=== PATIENT | male | born 1955 | race Caucasian/White ===

== ENCOUNTER → 2019-03-20 | Outpatient (CLI) | payer BC ==
[2019-03-20 10:55] LABS: Basophils # (A) 0.1 k/uL (0-0.2); Basophils % (A) 1 %; Eosinophils # (A) 0.3 k/uL (0-0.7); Eosinophils % (A) 4 %; HCT 48.2 % (39.0-53.0); HGB 15.8 gm/dL (13.0-17.5); Lymphocytes # (A) 1.6 k/uL (1.0-4.8); Lymphocytes % (A) 24 %; MCH 29.6 pg (25.0-35.0); MCHC 32.7 g/dL (31.0-37.0); MCV 90.4 fL (80.0-100.0); Mean Platelet Volume 7.6; Monocytes # (A) 0.5 k/uL (0-1.0); Monocytes % (A) 7 %; Neutrophils # (A) 4.1 k/uL (1.3-7.7); Neutrophils % (A) 62 %; Platelet Count 188 k/uL (150-450); RBC 5.33 m/uL (4.30-5.90); RDW 15.1 % (11.5-15.5); WBC 6.7 k/uL (3.8-10.6)
[2019-03-20 15:49] LABS: T4, Free (Free Thyroxine) 1.2 ng/dL (0.80-1.80)
[2019-03-20 18:07] LABS: African American GFR (CKD) 73.6 (60.0-200.0); Albumin 4.6 g/dL (3.80-4.90); Albumin/Globulin Ratio 2.3 (1.60-3.17); BUN/Creat Ratio 16.67 Ratio (12.00-20.00); Calcium 9.7 mg/dL (8.7-10.3); LDL Cholesterol,Calculated 77.4 mg/dL (0.0-131.0); Potassium 4.8 mmol/L (3.5-5.5); Total Bilirubin 0.4 mg/dL (0.3-1.2); Total Protein 6.6 g/dL (6.2-8.2); VLDL Calculation 18.6 mg/dL (5.00-40.00)
== END | disposition home or self-care (01) ==
LOC: LABWHC1 10:12
PROVIDERS: ATTEND Nurse Practitioner Family
DX: Z00.00 Encounter for general adult medical examination without abnormal findings (principal); E11.22 Type 2 diabetes mellitus with diabetic chronic kidney disease
CPT/HCPCS: 36415; 80053; 80061; 84153; 84439; 84443; 85025

== ENCOUNTER 2019-05-01 09:49 | Day surgery (SDC) | payer BC ==
[2019-04-30 08:54] VITALS: BMI 32.7
[2019-05-01 10:12] VITALS: BP 163/71; PULSE 90; TEMP 98
--- NOTE | 2019-05-01 12:16 | IR ---
PICC LINE PLACEMENT: HISTORY: Infection requiring long-term antibiotic therapy PROCEDURE: Ultrasound and fluoroscopic guidance of PICC line placement. COMPLICATIONS: None ANESTHESIA: 1. 1% Lidocaine locally. FINDINGS/TECHNIQUE: The procedure was explained to the patient. The risks, complications, benefits and alternatives were discussed and any questions were answered. Informed consent was obtained. The patient was placed supine on the fluoroscopic table and prepped and draped in the usual sterile fash ion. Utilizing a 21 gauge needle and sonographic and fluoroscopic guidance, access in the right cep halic vein was achieved and there is placement of a 0.018 guidewire. The vein is patent. A 4-F walsh th was placed over the guidewire. The guidewire and dilator were removed and a 4-F. PICC line was pl aced through the sheath with the tip at the level of the SVC. The sheath was removed, the catheter w as flushed and sutured into position. The patient was stable throughout the procedure and remained s table upon discharge from the Department of Radiology. The vein puncture was patent under ultrasound. A ferrer scale image was obtained to document patency of the vein punctured. All elements of the maximal barrier technique were utilized. FLUOROSCOPY TIME: 1 minute of fluoroscopy and one image submitted IMPRESSION: Successful PICC line placement under ultrasound and fluoroscopic guidance.
== END 2019-05-01 11:27 | disposition home or self-care (01) ==
LOC: CATHCVL 09:49
PROVIDERS: ATTEND Radiology Diagnostic Radiology
DX: T87.43 Infection of amputation stump, right lower extremity (principal); Y83.5 Amputation of limb(s) as the cause of abnormal reaction of the patient, or of later complication, without mention of misadventure at the time of the procedure; Z79.4 Long term (current) use of insulin; Z87.891 Personal history of nicotine dependence; E11.621 Type 2 diabetes mellitus with foot ulcer; L97.519 Non-pressure chronic ulcer of other part of right foot with unspecified severity
CPT/HCPCS: 36573; C1751; C1769

== ENCOUNTER → 2020-03-29 | Outpatient (CLI) | payer MEDICARE, BC ==
--- NOTE | 2020-03-29 10:13 | XR ---
Cervical spine HISTORY: Pain External views of the cervical spine Foraminal encroachment is present on the right at C5-6 and C6-7 on the right. There is spondylosis at these levels with associated loss of disc height C5-6 and C6-7. Cervical vertebral bodies show prese rved height and mineralization, anatomic alignment. Some mild facet arthropathy changes are present. Patient is edentulous. Atheromatous changes are present in the carotid artery distribution. IMPRESSION: Degenerative disc disease.
== END | disposition home or self-care (01) ==
LOC: RADXRMAIN 08:55
PROVIDERS: ATTEND Family Medicine
DX: M50.10 Cervical disc disorder with radiculopathy, unspecified cervical region (principal)
CPT/HCPCS: 72050

== ENCOUNTER 2020-05-24 13:35 | Emergency (ER) | payer MEDICARE, BC ==
[2020-05-24 13:42] VITALS: RESP 18; TEMP 98.5
[2020-05-24] MEDS ORDERED: SODIUM CHLORIDE 0.9% 500 ML 500 ML IV STA (14:07)
[2020-05-24] MEDS ORDERED: SODIUM CHLORIDE 0.9% 1,000 ML IV STA (14:07)
--- NOTE | 2020-05-24 14:08 | ED ---
Eye Problem HPI - General Chief complaint: Eye Problems Stated complaint: Blurred Vision Time Seen by Provider: 05/24/20 13:43 Source: patient, RN notes reviewed, old records reviewed Mode of arrival: wheelchair Limitations: no limitations - History of Present Illness Initial comments: This is a 64-year-old male presenting with vision loss right eye patient is less half his visual field in the upper portion. History of left eye prosthetic. Patient having no pain symptoms 3 days no head injuries. No other complaints MD chief complaint: vision change (Difficulty seeing upper visual field), other -: days(s) (3) Onset Description: sudden Location: right eye Place: home If Injury: none Severity: severe Severity scale (1-10): 10 (No pain but complete loss of vision right upper visual field) Consistency: constant Associated Symptoms: none Treatments Prior to Arrival: none - Related Data Home Medications Medication Instructions Recorded Confirmed INSULIN LISPRO (humaLOG) [humaLOG] 45 units SQ TID 02/05/14 04/30/19 Insulin Glargine [Lantus] 65 unit SQ BID 02/05/14 04/30/19 Allergies Allergy/AdvReac Type Severity Reaction Status Date / Time No Known Allergies Allergy Verified 05/24/20 13:41 Review of Systems ROS Statement: Those systems with pertinent positive or pertinent negative responses have been documented in the HPI. ROS Other: All systems not noted in ROS Statement are negative. 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 Past Psychological History: Anxiety Smoking Status: Current every day smoker Past Alcohol Use History: None Reported, Rare Past Drug Use History: None Reported - Past Family History Mother Family Medical History: Coronary Artery Disease (CAD), Diabetes Mellitus Father Family Medical History: No Reported History Sister(s) Family Medical History: Cancer General Exam - General Exam Comments Initial Comments: Right eye has no upper visual field Limitations: no limitations General appearance: alert, in no apparent distress Head exam: Present: atraumatic, normocephalic, normal inspection Eye exam: Present: normal appearance, PERRL, EOMI. Absent: scleral icterus, conjunctival injection, periorbital swelling ENT exam: Present: normal exam, mucous membranes moist Neck exam: Present: normal inspection. Absent: tenderness, meningismus, lymphadenopathy Respiratory exam: Present: normal lung sounds bilaterally. Absent: respiratory distress, wheezes, rales, rhonchi, stridor Cardiovascular Exam: Present: regular rate, normal rhythm, normal heart sounds. Absent: systolic murmur, diastolic murmur, rubs, gallop, clicks GI/Abdominal exam: Present: soft, normal bowel sounds. Absent: distended, tenderness, guarding, rebound, rigid Extremities exam: Present: normal inspection, full ROM, normal capillary refill. Absent: tenderness, pedal edema, joint swelling, calf tenderness Back exam: Present: normal inspection Neurological exam: Present: alert, oriented X3, CN II-XII intact Psychiatric exam: Present: normal affect, normal mood Skin exam: Present: warm, dry, intact, normal color. Absent: rash Course Vital Signs 05/24/20 05/24/20 13:37 15:38 Temperature 98.5 F Pulse Rate 93 85 Respiratory 18 18 Rate Blood Pressure 146/72 132/64 O2 Sat by Pulse 99 99 Oximetry - Reevaluation(s) Reevaluation #1: 05/24/20 16:06 Records reviewed Reevaluation #2: 05/24/20 16:07 No improvement or worsening of symptoms Reevaluation #3: 05/24/20 16:07 Patient informed results questions answered will admit for neurology and ophthalmology evaluation Reevaluation #4: 05/24/20 17:57 Dr Dennison did see and evaluate patient in the ER recommends transfer - Consultations Consultation #1: armani Manuel agrees to accept patient as a transfer Medical Decision Making - Medical Decision Making 64 male DF with right upper visual loss, or visual field loss. Will admit for likely CVA cause of vision loss - Lab Data Result diagrams: 05/24/20 14:30 05/24/20 14:30 Lab Results 05/24/20 05/24/20 05/24/20 Range/Units 14:30 14:30 14:30 WBC 8.1 (3.8-10.6) k/uL RBC 5.54 (4.30-5.90) m/uL Hgb 16.9 (13.0-17.5) gm/dL Hct 51.2 (39.0-53.0) % MCV 92.3 (80.0-100.0) fL MCH 30.5 (25.0-35.0) pg MCHC 33.1 (31.0-37.0) g/dL RDW 12.7 (11.5-15.5) % Plt Count 192 (150-450) k/uL Neutrophils % 69 % Lymphocytes % 19 % Monocytes % 6 % Eosinophils % 3 % Basophils % 1 % Neutrophils # 5.6 (1.3-7.7) k/uL Lymphocytes # 1.5 (1.0-4.8) k/uL Monocytes # 0.5 (0-1.0) k/uL Eosinophils # 0.3 (0-0.7) k/uL Basophils # 0.1 (0-0.2) k/uL PT 10.5 (9.0-12.0) sec INR 1.0 (<1.2) APTT 23.3 (22.0-30.0) sec Sodium (137-145) mmol/L Potassium (3.5-5.1) mmol/L Chloride (98-107) mmol/L Carbon Dioxide (22-30) mmol/L Anion Gap mmol/L BUN (9-20) mg/dL Creatinine (0.66-1.25) mg/dL Est GFR (CKD-EPI)AfAm (>60 ml/min/1.73 sqM) Est GFR (CKD-EPI)NonAf (>60 ml/min/1.73 sqM) Glucose (74-99) mg/dL Calcium (8.4-10.2) mg/dL Phosphorus (2.5-4.5) mg/dL Magnesium (1.6-2.3) mg/dL Total Bilirubin (0.2-1.3) mg/dL AST (17-59) U/L ALT (4-49) U/L Alkaline Phosphatase (38-126) U/L Creatine Kinase (55-170) U/L Troponin I (0.000-0.034) ng/mL Total Protein (6.3-8.2) g/dL Albumin (3.5-5.0) g/dL Urine Color Light Yellow Urine Appearance Clear (Clear) Urine pH 5.5 (5.0-8.0) Ur Specific Leslie 1.010 (1.001-1.035) Urine Protein Trace H (Negative) Urine Glucose (UA) 3+ H (Negative) Urine Ketones Negative (Negative) Urine Blood Negative (Negative) Urine Nitrite Negative (Negative) Urine Bilirubin Negative (Negative) Urine Urobilinogen <2.0 (<2.0) mg/dL Ur Leukocyte Esterase Negative (Negative) 05/24/20 05/24/20 Range/Units 14:30 14:30 WBC (3.8-10.6) k/uL RBC (4.30-5.90) m/uL Hgb (13.0-17.5) gm/dL Hct (39.0-53.0) % MCV (80.0-100.0) fL MCH (25.0-35.0) pg MCHC (31.0-37.0) g/dL RDW (11.5-15.5) % Plt Count (150-450) k/uL Neutrophils % % Lymphocytes % % Monocytes % % Eosinophils % % Basophils % % Neutrophils # (1.3-7.7) k/uL Lymphocytes # (1.0-4.8) k/uL Monocytes # (0-1.0) k/uL Eosinophils # (0-0.7) k/uL Basophils # (0-0.2) k/uL PT (9.0-12.0) sec INR (<1.2) APTT (22.0-30.0) sec Sodium 136 L (137-145) mmol/L Potassium 5.1 (3.5-5.1) mmol/L Chloride 104 (98-107) mmol/L Carbon Dioxide 25 (22-30) mmol/L Anion Gap 7 mmol/L BUN 20 (9-20) mg/dL Creatinine 0.85 (0.66-1.25) mg/dL Est GFR (CKD-EPI)AfAm >90 (>60 ml/min/1.73 sqM) Est GFR (CKD-EPI)NonAf >90 (>60 ml/min/1.73 sqM) Glucose 282 H (74-99) mg/dL Calcium 9.5 (8.4-10.2) mg/dL Phosphorus 3.0 (2.5-4.5) mg/dL Magnesium 1.9 (1.6-2.3) mg/dL Total Bilirubin 0.5 (0.2-1.3) mg/dL AST 25 (17-59) U/L ALT 31 (4-49) U/L Alkaline Phosphatase 50 (38-126) U/L Creatine Kinase 50 L (55-170) U/L Troponin I <0.012 (0.000-0.034) ng/mL Total Protein 7.3 (6.3-8.2) g/dL Albumin 4.4 (3.5-5.0) g/dL Urine Color Urine Appearance (Clear) Urine pH (5.0-8.0) Ur Specific Leslie (1.001-1.035) Urine Protein (Negative) Urine Glucose (UA) (Negative) Urine Ketones (Negative) Urine Blood (Negative) Urine Nitrite (Negative) Urine Bilirubin (Negative) Urine Urobilinogen (<2.0) mg/dL Ur Leukocyte Esterase (Negative) - EKG Data -: EKG Interpreted by Me (EKG is sinus rhythm 80 AL 152 QRS 100 QTc 449) - Radiology Data Radiology results: report reviewed (CT brain negatvie for acute disease), image reviewed Critical Care Time Critical Care Time: Yes Total Critical Care Time: 31 Disposition Clinical Impression: Vision loss, right eye, Vitreous hemorrhage, right eye Disposition: OTHER INSTITUTION NOT DEFINED Condition: Fair Is patient prescribed a controlled substance at d/c from ED?: No Referrals: Shakeel Villanueva MD [Primary Care Provider] - 1-2 days - Out of Hospital Transfer - Req. Specs Out of Hospital Transfer - Requested Specifics: Other Emergency Center ([facility]
[2020-05-24 14:55] LABS: Appearance,Urine Clear (Clear); Basophils # (A) 0.1 k/uL (0-0.2); Basophils % (A) 1 %; Bilirubin,Urine Negative (Negative); Blood,Urine Negative (Negative); Color,Urine Light Yellow; Eosinophils # (A) 0.3 k/uL (0-0.7); Eosinophils % (A) 3 %; Glucose,Urine (UA) 3+ (Negative); HCT 51.2 % (39.0-53.0); HGB 16.9 gm/dL (13.0-17.5); Ketones,Urine Negative (Negative); Leukocyte Esterase,Urine Negative (Negative); Lymphocytes # (A) 1.5 k/uL (1.0-4.8); Lymphocytes % (A) 19 %; MCH 30.5 pg (25.0-35.0); MCHC 33.1 g/dL (31.0-37.0); MCV 92.3 fL (80.0-100.0); Mean Platelet Volume 7.5; Monocytes # (A) 0.5 k/uL (0-1.0); Monocytes % (A) 6 %; Neutrophils # (A) 5.6 k/uL (1.3-7.7); Neutrophils % (A) 69 %; Nitrite,Urine Negative (Negative); PH, Urine 5.5 (5.0-8.0); Platelet Count 192 k/uL (150-450); Protein,Urine Trace (Negative); RBC 5.54 m/uL (4.30-5.90); RDW 12.7 % (11.5-15.5); Urobilinogen,Urine <2.0 mg/dL (<2.0); WBC 8.1 k/uL (3.8-10.6)
[2020-05-24 15:04] LABS: Partial Thromboplastin Time 23.3 sec (22.0-30.0); Prothrombin Time 10.5 sec (9.0-12.0)
[2020-05-24 15:05] LABS: ALT 31 U/L (4-49); AST 25 U/L (17-59); African American GFR (CKD) >90 (>60 ml/min/1.73 sqM); Albumin 4.4 g/dL (3.5-5.0); Alkaline Phosphatase 50 U/L (38-126); Anion Gap 7 mmol/L; Blood Urea Nitrogen 20 mg/dL (9-20); Calcium 9.5 mg/dL (8.4-10.2); Carbon Dioxide 25 mmol/L (22-30); Chloride 104 mmol/L (98-107); Creatine Kinase 50 U/L (55-170); Glucose 282 mg/dL (74-99); Magnesium 1.9 mg/dL (1.6-2.3); Non-African American GFR(CKD) >90 (>60 ml/min/1.73 sqM); Potassium 5.1 mmol/L (3.5-5.1); Sodium 136 mmol/L (137-145); Total Bilirubin 0.5 mg/dL (0.2-1.3); Total Protein 7.3 g/dL (6.3-8.2)
--- NOTE | 2020-05-24 15:54 | CT ---
EXAMINATION TYPE: CT brain wo con DATE OF EXAM: 05/24/2020 HISTORY: Vision loss.. CT DLP: 1102.4 mGycm. Automated Exposure Control for Dose Reduction was Utilized. TECHNIQUE: CT scan of the head is performed without contrast. COMPARISON: MRI brain 07/16/2013. FINDINGS: Redemonstrated prosthetic left eye. Right globe is unremarkable. There is no acute intracranial hemorrhage, midline shift, or mass effect identified. The ventricles, sulci, and cisterns are normal in size and configuration. No extra-axial fluid collection. Bones and extracranial soft tissues are intact. Visualized sinuses a nd mastoid air cells are clear. IMPRESSION: 1. No acute intracranial hemorrhage, midline shift, or mass effect. 2. Prosthetic left eye. Right globe unremarkable.
[2020-05-24] MEDS ORDERED: PROPARACAINE 0.5% OPHTH DROPS 15 ML BTL RIGHT EYE STA (16:15)
[2020-05-24] MEDS ORDERED: TROPICAMIDE 1% OPHTH DROPS 2 ML BTL RIGHT EYE SCH (16:15)
--- NOTE | 2020-05-24 16:21 | CT ---
EXAMINATION TYPE: CT angio chest DATE OF EXAM: 05/24/2020 3:52 PM COMPARISON: CT chest 10/03/2011. HISTORY: Weakness and vision loss. CT DLP: 584.7 mGycm Automated exposure control for dose reduction was used. CONTRAST: CTA scan of the thorax is performed with IV Contrast, patient injected with 100 mL of Isovue 370, pul monary embolism protocol. MIP images are created and reviewed. FINDINGS: LUNGS: The lungs are grossly clear. Mild paraseptal emphysematous change at the lung apices. No mallika rning parenchymal mass or nodule identified. There is a 4 mm pulmonary nodule of the right middle lo be (406:82) which is unchanged versus 2012 comparison and most likely benign. There is no pleural eff usion or pneumothorax seen. The tracheobronchial tree is patent. MEDIASTINUM: There is satisfactory enhancement of the pulmonary artery and its branches, there is no CT evidence for pulmonary embolism. There are no greater than 1 cm hilar or mediastinal lymph nodes. Cardiac size normal. No pericardial effusion is seen. OTHER: No additional significant abnormality is seen. IMPRESSION: 1. NO EVIDENCE OF PULMONARY EMBOLISM. 2. NO THORACIC AORTIC ANEURYSM. 3. NO ACUTE CARDIOPULMONARY PROCESS.
[2020-05-24 18:23] VITALS: BP 95/83; PULSE 88
--- NOTE | 2020-05-24 18:30 | CONS ---
CONSULTATION CHIEF COMPLAINT: Decreased vision in the right eye for the last 4 days. This started on Sunday. 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 The patient is also diabetic. Medical history reviewed. EYE EXAMINATION: Vision: Right eye 20/200 pinhole. Left eye is artificial. Extraocular motility full. Lids normal. Cornea clear. AC could not evaluate due to lack of slit-lamp. Tension is 15 mmHg right eye. Retina shows vitreous hemorrhage, mainly temporally, with possible retinal detachment; not able to clearly see the tear. ASSESSMENT: 1. Right vitreous hemorrhage. 2. Diabetic. 3. Possible right retinal detachment. PLAN: The patient has only one eye. 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 Discussed with the patient. Advised him to see a retina specialist in [facility] and to follow with his local manuscripts curator in [place] after he is checked. MMODL / IJN: [id number] /
== END 2020-05-24 19:20 | disposition other institution (70) ==
LOC: EC 13:35
DX: H43.11 Vitreous hemorrhage, right eye (principal); H54.61 Unqualified visual loss, right eye, normal vision left eye; E11.9 Type 2 diabetes mellitus without complications; F17.200 Nicotine dependence, unspecified, uncomplicated; Z79.4 Long term (current) use of insulin; Z85.820 Personal history of malignant melanoma of skin; Z97.0 Presence of artificial eye
CPT/HCPCS: 36415; 93005; 80053; 82550; 83735; 84100; 84484; 85025; 85610; 85730; 81003; 70450; 71275; 99291; 96360; 96361 ×5; Q9967

== ENCOUNTER → 2020-12-30 | Outpatient (CLI) | payer MEDICARE, BC ==
--- NOTE | 2020-12-30 16:31 | US ---
EXAMINATION TYPE: US thyroid st tissue head/neck DATE OF EXAM: 12/30/2020 COMPARISON: NONE CLINICAL HISTORY: R22.1 SWELLING, MASS AND LUMP. Patient had left parotid removed 6 years ago. Now f eels swelling/fullness left neck just under left ear. There is a lymph node in the left neck measuring 2.4 x 1.4 x 1.0 cm. At the site of swelling at the l eft mandibular area There, is no other cyst or mass.. Right side was sonographically evaluated for co mparison. IMPRESSION: 1. 2.4 cm lymph node in the left neck. No other cyst or masses seen at site of swelling in the left m andibular area.
== END | disposition home or self-care (01) ==
LOC: RADUSWWP 10:00
PROVIDERS: ATTEND Family Medicine
DX: R22.1 Localized swelling, mass and lump, neck (principal)
CPT/HCPCS: 76536

== ENCOUNTER → 2021-01-26 | Outpatient (CLI) | payer MEDICARE, BC ==
[2021-01-26 07:26] LABS: African American GFR (CKD) >90 (>60 ml/min/1.73 sqM); Blood Urea Nitrogen 19 mg/dL (9-20); Non-African American GFR(CKD) >90 (>60 ml/min/1.73 sqM)
--- NOTE | 2021-01-26 14:55 | CT ---
EXAMINATION TYPE: CT iac w con DATE OF EXAM: 01/26/2021 COMPARISON: CT brain 05/24/2020 HISTORY: Unspecified mastoiditis CT DLP: 150.00 mGycm Automated exposure control for dose reduction was used. Contrast: None Technique: Axial images 1 mm thick sections. Reconstructed images in the coronal plane. Study is perf ormed with intravenous contrast. 100 mL Isovue-300 FINDINGS: No cerebellar pontine angle masses are evident. No enhancing masses are evident. Internal auditory canals are normal without expansion or erosion. Cochlea and semicircular canals are normal. The middle ears are clear. Incus and malleus have normal orientation. External auditory canals are unremarkable. The mastoid air cells are clear. IMPRESSION: 1. NO SUSPICIOUS CHANGES TO SUGGEST ACUTE MASTOIDITIS.
--- NOTE | 2021-01-26 15:02 | CT ---
EXAMINATION TYPE: CT soft tissue neck w con DATE OF EXAM: 01/26/2021 COMPARISON: None HISTORY: Unspecified mastoiditis CT DLP: 607.40 mGycm CONTRAST: Patient injected with 100 ml mL of Isovue 300. TECHNIQUE: Axial images at 3 mm thick sections. Reconstructed images in the coronal plane and sagitt al plane are reviewed. FINDINGS: Limited CT sections are obtained the lung apices. The lung apices appear clear. CT neck: The torus tubarius and fossa of Rosenmuller are normal. Word Processor spaces are normal. Para nasal sinuses and mastoid air cells are clear. There is a left eye prosthesis. Parotid glands appear normal and symmetrical. Submandibular glands, are normal. Parapharyngeal spac es are normal. No suspicious adenopathy is evident. The hypopharynx appears within normal limits. Vocal cord level are closed time of this exam. Subglottic airway appears normal. Thyroid as visualized is normal. Osseous structures are normal. IMPRESSIONS: 1. No suspicious acute changes soft tissue neck.
== END | disposition home or self-care (01) ==
LOC: RADCTMAIN 06:35
PROVIDERS: ATTEND Otolaryngology
DX: H70.90 Unspecified mastoiditis, unspecified ear (principal)
CPT/HCPCS: 82565; 84520; 70481; 70491; 36415; Q9967

== ENCOUNTER → 2021-05-25 | Outpatient (CLI) | payer MEDICARE, BC ==
--- NOTE | 2021-05-25 08:12 | CTL ---
EXAMINATION TYPE: CT Low Dose Lung DATE OF EXAM ORDERED: 05/25/2021 COMPARISON: None HISTORY: . Low Dose CT Lung Screening CT DLP: [address] CTDI: 4.3 mGy IV CONTRAST USED: None. SCREENING VISIT: First visit COMPARISON: None. TECHNIQUE: Low dose computed tomography scan was performed through the chest at 1 millimeter thick se ctions and reconstructed images in the coronal plane at [address] DIAGNOSTIC QUALITY: Satisfactory FINDINGS: LUNG NODULES: 5.4 mm pulmonary nodule lateral segment right middle lobe image 190. LUNGS: COPD: Severity: Mild Fibrosis: Severity:None Lymph nodes: None Other findings: None RIGHT PLEURAL SPACE: Effusion: None Calcification: None Thickening: None Pneumothorax: None LEFT PLEURAL SPACE: Effusion: None Calcification: None Thickening: None Pneumothorax: None HEART: Heart Size: Mildly enlarged Coronary calcification: Mild Pericardial effusion: None OTHER FINDINGS: Upper abdomen: No significant abnormality Bony thorax: Degenerative changes Supraclavicular region: No significant abnormalityOther: No significant abnormalityI IMPRESSION: Benign FOLLOW UP CT CHEST RECOMMENDATION: Follow-up screening in one year. Smoking cessation recommended CT LUNG RAD: LUNG RAD CATEGORY 2 benign
== END | disposition home or self-care (01) ==
LOC: RADCTMAIN 06:59
PROVIDERS: ATTEND Family Medicine
DX: Z12.2 Encounter for screening for malignant neoplasm of respiratory organs (principal); R91.1 Solitary pulmonary nodule; F17.210 Nicotine dependence, cigarettes, uncomplicated
CPT/HCPCS: 71271

== ENCOUNTER → 2022-02-15 | Outpatient (CLI) | payer MEDICARE, BC ==
--- NOTE | 2022-02-15 11:40 | US ---
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 Dizziness. Current smoker. Hx h ypertension, diabetes. EXAM MEASUREMENTS: RIGHT: Peak Systolic Velocity (PSV) cm/sec ----- Right CCA: 113 ----- Right ICA: 83.6 ----- Right ECA: 119 ICA/CCA ratio: 0.74 RIGHT: End Diastole cm/sec ----- Right CCA: 16.6 ----- Right ICA: 24.4 ----- Right ECA: 14.7 LEFT: Peak Systolic Velocity (PSV) cm/sec ----- Left CCA: 91.5 ----- Left ICA: 117 ----- Left ECA: 109 ICA/CCA ratio: 1.28 LEFT: End Diastole cm/sec ----- Left CCA: 13.1 ----- Left ICA: 29.5 ----- Left ECA: 8.7 VERTEBRALS (direction of flow): Right Vertebral: Antegrade Left Vertebral: Antegrade Rhythm: Normal Plaque is seen throughout the right CCA, bulb, and prox ICA. Some plaque seen within left CCA and l eft bulb. No elevated velocities at this time. Hypoechoic area with hyperechoic center seen within the left neck: 2.5 x 1.8 x 0.9 cm. IMPRESSION: No evidence for hemodynamically significant stenosis. Criteria for Assigning % of Stenosis / Diameter reduction (Estimation based on the indirect measurements of the internal carotid artery velocities (ICA PSV). 1. Normal (no stenosis)=ICA PSV < 125 cm/s: ratio < 2.0: ICA EDV<40 cm/s. 2. Less than 50% stenosis=ICA PSV < 125 cm/s: ratio < 2.0: ICA EDV<40 cm/s. 3. 50 to 69% stenosis=ICA PSV of 125 to 230 cm/s: ration 2.0 ? 4.0: ICA EDV 40-100 cm/s. 4. Greater than 70% stenosis to near occlusion= ICA PSV > 230 cm/s: ratio > 4.0: ICA EDV > 100 cm/s. 5. Near occlusion= ICA PSV velocities may be low or undetectable: variable ratio and ICA EDV. 6. Total occlusion=unable to detect flow.
--- NOTE | 2022-02-21 11:28 | US ---
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 Hx type 2 diabetes, hypertensio n, current smoker, rest pain per patient. Patient states the doctor thought he had a heart attack at some point. Right great toe amputated in December of 2018. Doppler Waveforms: Right: Left: Pulse Volume Recording: Symmetric Pressure Gradients: No significant segmental gradient Ankle-Brachial Indices: Right: 1.13 Left: 1.09 Toe Brachial Indices: Right: 0.84. Second toe examined due to right great toe amputated. Left: 0.91 IMPRESSION: Normal ankle-brachial indices
== END | disposition home or self-care (01) ==
LOC: RADUSWWP 08:01
PROVIDERS: ATTEND Family Medicine
DX: E11.3211 Type 2 diabetes mellitus with mild nonproliferative diabetic retinopathy with macular edema, right eye (principal); R09.89 Other specified symptoms and signs involving the circulatory and respiratory systems; R42 Dizziness and giddiness
CPT/HCPCS: 93880; 93922

== ENCOUNTER → 2022-03-08 | Outpatient (CLI) | payer MEDICARE, BC ==
--- NOTE | 2022-03-09 05:38 | MR ---
EXAMINATION TYPE: MR brain/orbits wo/w con DATE OF EXAM: 03/08/2022 COMPARISON: 07/16/2013 HISTORY: Prior CT on PACS, dizziness,headaches, history of melanoma removed from left eye CONTRAST: Standard multiplanar, multisequence MRI departmental protocol images were obtained without contrast a nd with 12ml mL intravenous Gadavist gadolinium contrast. Multiplanar multiecho imaging of the brain and orbits without and with the IV contrast. The diffusion images show no evidence of an acute infarct. Corpus callosum is intact. There is some m inimal linear increased signal adjacent to the lateral ventricles on a T2 and FLAIR images. This korey ures up to 3 mm in thickness. No evidence of any significant peripheral white matter signal changes. The brainstem is intact. Cerebellum is intact. Corpus callosum is intact. Sella turcica appears merissa l. There is no evidence of orbital mass. No retro-orbital mass. There is mucosal thickening and fluid in the frontal and anterior ethmoid air cells. There is left globe prosthesis. There is mucosal thicken ing in the sphenoid sinuses bilaterally. The contrast images show no pathologic enhancement. There is normal enhancement of the venous sinuses . No pathologic orbital enhancement. IMPRESSION: There is left eye prosthesis. No evidence of recurrent tumor. There is frontal and anterior ethmoid s inusitis also present on old exam. There is bilateral mild mastoiditis which is new compared to old e xam. Mild age-related white matter changes. No acute intracranial abnormality.
== END | disposition home or self-care (01) ==
LOC: RADMRIMAIN 19:13
PROVIDERS: ATTEND Ophthalmology
DX: C69.32 Malignant neoplasm of left choroid (principal)
CPT/HCPCS: 70543; 70553; A9585

== ENCOUNTER → 2022-05-26 | Outpatient (CLI) | payer MEDICARE, BC ==
--- NOTE | 2022-05-26 12:52 | CTL ---
EXAMINATION TYPE: CT Low Dose Lung DATE OF EXAM ORDERED: 05/26/2022 HISTORY: History of tobacco use, Lung cancer screening CT DLP: 136.[address] CTDI: 4.0 mGy Automated exposure control for dose reduction was used. SCREENING VISIT: Subsequent visit COMPARISON: 05/25/2021 TECHNIQUE: Low dose computed tomography scan was performed through the chest at 1 mm thick sections a nd reconstructed images in multiple planes at 1 mm and [address] DIAGNOSTIC QUALITY: Satisfactory FINDINGS: LUNG NODULES: None. 6 mm right middle lobe pulmonary nodule is unchanged dating back to 2011. No new or enlarging pulmona ry nodules. LUNGS: COPD: Severity: Mild paraseptal emphysema changes. Mild bronchial wall thickening is noted throughout the lungs. Fibrosis: Severity: Scattered peripheral reticulation is present. Lymph nodes: None Other findings: None RIGHT PLEURAL SPACE: Effusion: None Calcification: None Thickening: None Pneumothorax: None LEFT PLEURAL SPACE: Effusion: None Calcification: None Thickening: None Pneumothorax: None HEART: Heart Size: Normal Coronary Calcification: Mild atherosclerosis of the coronary arteries. Pericardial Effusion: None OTHER FINDINGS: Upper abdomen: Partially visualized right renal cyst Bony thorax: None Supraclavicular region: None Other: None IMPRESSION: 1. Stable right middle lobe pulmonary nodule dating back to 2011, no further workup is nodules recom mended. No new or enlarging pulmonary nodules. 2. Mild COPD changes including mild emphysema and mild bronchitis changes. CT LUNG RAD AND CT CHEST RECOMMENDATION: Lung-Rad 2 Benign Appearance or Behavior: Continue annual sc reening with LDCT in 12 months. S Modifier (other clinically significant findings): s
== END | disposition home or self-care (01) ==
LOC: RADCTMAIN 11:52
PROVIDERS: ATTEND Family Medicine
DX: Z12.2 Encounter for screening for malignant neoplasm of respiratory organs (principal); J43.9 Emphysema, unspecified; Z87.891 Personal history of nicotine dependence
CPT/HCPCS: 71271

== ENCOUNTER → 2023-10-12 | Outpatient (CLI) | payer MEDICARE, BC ==
--- NOTE | 2023-10-13 17:01 | MR ---
EXAMINATION TYPE: MR cervical spine wo/w con DATE OF EXAM: 10/12/2023 8:06 AM CLINICAL INDICATION:Male, 68 years old with history of M54.12 RADICULOPATHY, CERVICAL REGION, Neck pa in into zahra upper extremities COMPARISON: 01/26/2021.. TECHNIQUE: Multi planar, multi sequence imaging was performed utilizing: T1-weighted, T2-weighted, an d turbo inversion recovery imaging of the cervical spine. IV Contrast: 11 cc Gadavist (none if empty) FINDINGS: Alignment: The cervical vertebral bodies have preserved heights. Alignment is within normal limits gi favian patient positioning. Bones: Osteophytes and disc space narrowing most pronounced at the C5-C7 vertebral levels.No abnormal postcontrast enhancement. Cord: The spinal cord is unremarkable with regards to their signal intensity and morphology. No abnor mal postcontrast enhancement. Discs: Intervertebral disc signal is maintained. C2-C3: No significant disc pathology. The spinal canal is patent. No neural foraminal stenosis. C3-C4: No significant disc pathology. The spinal canal is patent. No neural foraminal stenosis. C4-C5: A disc osteophyte complex is present which minimally narrows the ventral subarachnoid space. Bilateral facet and uncovertebral joint arthropathy are present with mild bilateral neural foraminal stenosis. C5-C6: A disc osteophyte complex is present with mild spinal canal stenosis. Bilateral facet and unc overtebral joint arthropathy are present with moderate to severe right and [id number] left neur al foraminal stenosis. C6-C7: A disc osteophyte complex is present with mild spinal canal stenosis. Bilateral facet and unc overtebral joint arthropathy are present with moderate bilateral neural foraminal stenosis. C7-T1: No significant disc pathology. The spinal canal is patent. No neural foraminal stenosis. Other: None. IMPRESSION: 1. No evidence for disc herniation or significant spinal canal stenosis. No abnormal postcontrast enh ancement. 2. Multilevel disc degeneration with associated osteoarthritic changes. 3. Neural foraminal stenosis worse at C5-C6 with moderate to severe right and C6 C7 bilateral moderat e stenosis.
== END | disposition home or self-care (01) ==
LOC: RADMRIMAIN 07:08
PROVIDERS: ATTEND Psychiatry & Neurology Neurology
DX: M99.71 Connective tissue and disc stenosis of intervertebral foramina of cervical region (principal); M50.320 Other cervical disc degeneration, mid-cervical region, unspecified level; Z85.820 Personal history of malignant melanoma of skin
CPT/HCPCS: 72156; A9585

== ENCOUNTER → 2024-06-02 | Outpatient (CLI) | payer MEDICARE, BC ==
--- NOTE | 2024-06-02 14:25 | US ---
EXAMINATION TYPE: US Aorta Screening DATE OF EXAM: 06/02/2024 COMPARISON: CT 2012 CLINICAL INDICATION: Male, 68 years old with history of Z12.2 ENCNTR SCREEN FOR MALIGNANT NEOPLASM OF RESP; TECHNIQUE: Multiple sonographic images of the abdominal aorta are obtained with grayscale and color D oppler imaging. with grayscale and color Doppler imaging FINDINGS: EXAM MEASUREMENTS: Abdominal Aorta: Proximal: 2.3 x 2.4cm Mid: 2.0 X 2.2cm Distal: 1.9 x 2.0cm Bifurcation: Right Iliac: 1.2 x 1.2cm Left Iliac: 1.2 x 1.2cm No AAA seen, limited by overlying midline bowel gas IMPRESSION: No evidence for aortic aneurysm. [facility], , 06/02/2024 2:23 PM
--- NOTE | 2024-06-02 14:53 | CTL ---
EXAMINATION TYPE: CT Low Dose Lung DATE OF EXAM ORDERED: 06/02/2024 COMPARISON: 05/26/2022 HISTORY: . Low Dose CT Lung Screening CT DLP: 130.[address] CTDI: 4.00 mGy IV CONTRAST USED: None. SCREENING VISIT: First visit COMPARISON: None. TECHNIQUE: Low dose computed tomography scan was performed through the chest at 1 millimeter thick se ctions and reconstructed images in the coronal plane at [address] DIAGNOSTIC QUALITY: Satisfactory FINDINGS: LUNG NODULES: Not presentLeft lung: no nodules identified.Right lung: no nodules identified. LUNGS: COPD: Severity: Mild Fibrosis: Severity:None Lymph nodes: None Other findings: Bronchial wall thickening can be seen in patients of bronchitis. Minimal emphysematou s changes seen. RIGHT PLEURAL SPACE: Effusion: None Calcification: None Thickening: None Pneumothorax: None LEFT PLEURAL SPACE: Effusion: None Calcification: None Thickening: None Pneumothorax: None HEART: Heart Size: Mildly enlarged Coronary calcification: Mild Pericardial effusion: None OTHER FINDINGS: Upper abdomen: No significant abnormality Bony thorax: Degenerative changes Supraclavicular region: No significant abnormalityOther: No significant abnormalityI IMPRESSION: Bronchial wall thickening can be seen in patients of bronchitis. Minimal emphysematous ch anges seen. FOLLOW UP CT CHEST RECOMMENDATION: Follow-up screening in one year CT LUNG RAD: LUNG RAD CATEGORY 1 negative [facility], , 06/02/2024 2:51 PM
== END | disposition home or self-care (01) ==
LOC: RADCTMAIN 07:38
PROVIDERS: ATTEND Family Medicine
DX: Z12.2 Encounter for screening for malignant neoplasm of respiratory organs (principal); Z13.6 Encounter for screening for cardiovascular disorders; F17.210 Nicotine dependence, cigarettes, uncomplicated; J43.9 Emphysema, unspecified
CPT/HCPCS: 71271; 76706